=== PATIENT | male | born 1995 | race Caucasian/White ===

== ENCOUNTER 2016-05-28 19:44 | Emergency (ER) | payer BC ==
[2016-05-28 21:28] VITALS: BP 108/78
[2016-05-28] MEDS ORDERED: Amoxicillin/Clavulanate TAB* 875 MG PO ONE (22:01)
--- NOTE | 2016-05-28 22:09 | UC ---
Throat Pain/Nasal Edgar HPI - HPI Summary HPI Summary: TWO MONTHS OF SINUS CONGESTION COUGH, SORE THROAT. NO FEVER. 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 Onset/Duration: Gradual Onset, Lasting Weeks, Still Present Severity: Moderate Cough: Nonproductive Associated Signs & Symptoms: Positive: Sinus Discomfort, Nasal Discharge - Epiglottits Risk Factors Epiglottis Risk Factors: Negative - Allergies/Home Medications Allergies/Adverse Reactions: Allergies Allergy/AdvReac Type Severity Reaction Status Date / Time No Known Allergies Allergy Verified 05/28/16 21:27 Home Medications: Home Medications Escitalopram Oxalate [Lexapro] 10 mg PO DAILY 05/28/16 [History Confirmed ] PMH/Surg Hx/FS Hx/Imm Hx Previously Healthy: Yes - Surgical History Surgical History: None - Family History Known Family History: Negative: Cardiac Disease, Respiratory Disease - Social History Occupation: Employed Full-time Lives: With Family Alcohol Use: Weekly Substance Use Type: Marijuana Smoking Status (MU): Never Smoked Tobacco - Immunization History Most Recent Influenza Vaccination: November 2014 Vaccination Up to Date: Yes Review of Systems Constitutional: Fatigue Skin: Negative Eyes: Negative ENT: Ear Ache, Nasal Discharge Respiratory: Cough Cardiovascular: Negative Gastrointestinal: Negative Genitourinary: Negative Motor: Negative Neurovascular: Negative Musculoskeletal: Negative Neurological: Negative Psychological: Negative All Other Systems Reviewed And Are Negative: Yes Physical Exam Triage Information Reviewed: Yes Appearance: Well-Appearing, No Pain Distress, Well-Nourished Vital Signs: Initial Vital Signs Temp 98.9 F 05/28/16 21:22 Pulse 74 05/28/16 21:22 Resp 16 05/28/16 21:22 BP 108/78 05/28/16 21:22 Pulse Ox 100 05/28/16 21:22 Eye Exam: Normal ENT: Positive: Hearing grossly normal, Pharynx normal, TM bulging, TM dull Dental Exam: Normal Neck exam: Normal Neck: Positive: Supple Respiratory Exam: Normal Respiratory: Positive: Chest non-tender, Lungs clear, Normal breath sounds, No respiratory distress Cardiovascular Exam: Normal Cardiovascular: Positive: RRR, No Murmur Abdominal Exam: Normal Musculoskeletal Exam: Normal Neurological Exam: Normal Psychological Exam: Normal Psychological: Positive: Normal Response To Family Skin Exam: Normal Throat Pain/Nasal Course/Dx - Differential Dx/Diagnosis Differential Diagnosis/HQI/PQRI: Pharyngitis, Sinusitis, URI Provider Diagnoses: SINUSITIS Discharge - Discharge Plan Condition: Stable Disposition: HOME Prescriptions: Amoxicillin/Clavulanate TAB* [Augmentin TAB 875*] 875 mg PO BID #20 tab Patient Education Materials: Sinusitis (ED) Referrals: Adolfo Carvajal MD [Primary Care Provider] -
== END 2016-05-28 22:11 | disposition home or self-care (01) ==
LOC: UCCORT 19:44
DX: J32.9 Chronic sinusitis, unspecified (principal)
CPT/HCPCS: 99212; A9270-GY; G0463

== ENCOUNTER 2018-09-25 11:36 | Emergency (ER) | payer BC ==
--- NOTE | 2018-09-25 11:51 | UC ---
Skin Complaint HPI - HPI Summary HPI Summary: 23 yo male presents with testicular lump. He tells me that every few months he will do a self exam of his testicles while in the shower. Last night he did this and noticed a bump at the superior portion of his left testicle. No pain. He has been feeling well otherwise, other than some cold symptoms for the last few days. No fever, weight loss, decreased appetite, abdominal pain, dysuria. He was last sexually active about 2 weeks ago with his long time girlfriend. States no concern for STDs today. - History of Current Complaint Time Seen by Provider: 09/25/18 11:50 Stated Complaint: SOFT TISSUE Hx Obtained From: Patient Onset/Duration: Sudden Onset Current Severity: None - Allergy/Home Medications Allergies/Adverse Reactions: Allergies Allergy/AdvReac Type Severity Reaction Status Date / Time No Known Allergies Allergy Verified 09/25/18 11:56 Home Medications: Home Medications NK [No Home Medications Reported] 09/25/18 [History Confirmed 09/25/18] PMH/Surg Hx/FS Hx/Imm Hx - Additional Past Medical History Additional PMH: None Psychological History: Anxiety - Surgical History Surgical History: None - Family History Known Family History: Negative: Cardiac Disease, Respiratory Disease - Social History Lives: With Family Alcohol Use: Weekly Substance Use Type: Marijuana Smoking Status (MU): Never Smoked Tobacco - Immunization History Most Recent Influenza Vaccination: November 2014 Vaccination Up to Date: Yes Review of Systems All Other Systems Reviewed And Are Negative: Yes Constitutional: Positive: Negative Respiratory: Positive: Negative Cardiovascular: Positive: Negative Genitourinary: Positive: Other - Testicular lump Neurovascular: Positive: Negative Neurological: Positive: Negative Psychological: Positive: Negative Physical Exam - Summary Physical Exam Summary: GENERAL: NAD. WDWN. No pain distress. SKIN: No rashes, sores, lesions, or open wounds. NECK: Supple. Nontender. No lymphadenopathy. CHEST: CTAB. No r/r/w. No accessory muscle use. Breathing comfortably and in no distress. CV: RRR. Without m/r/g. Pulses intact. Cap refill <2seconds ABDOMEN: Soft. NTTP. No distention or guarding. Bowel sounds present NEURO: Alert. PSYCH: Age appropriate behavior. Triage Information Reviewed: Yes Vital Signs: Vital Signs: Temp Pulse Resp BP Pulse Ox 98.3 F 77 18 118/75 100 09/25/18 11:53 09/25/18 11:53 09/25/18 11:53 09/25/18 11:53 09/25/18 11:53 Vital Signs Reviewed: Yes Male Genital Exam: Positive: Other - Approx 5mm nodule near spermatic cord attachment to testicle near site of epididymal head. NTTP. No change with sitting, standing, or valsalva. No change with lifting the teste.. Negative: Epididymal Tenderness, Erythema, Hernia Mass, Inguinal Tenderness, Scrotum Tenderness (R), Scrotum Tenderness (L), Testicular Tenderness (R), Testicular Tenderness (L), Urethral Discharge Course/Dx - Course Course Of Treatment: UA negative. Testicular mass. Unfortunately, there is no ultrasound available at the today to have this further evaluated. I will draw for CBC, CMP, and HIV. Although I have a low suspicion for an emergent condition such as torsion - I suggested he go to the ER today to have an ultrasound performed. He did not want to do this, thus I let him know that he can return to the tomorrow and we can perform an ultrasound to further evaluate at that time as he has no PCP. Advised that if he develops pain or trouble urinating to go to the ED immediately. - Diagnoses Provider Diagnosis: Testicular mass Discharge - Sign-Out/Discharge Documenting (check all that apply): Patient Departure All imaging exams completed and their final reports reviewed: No Studies - Discharge Plan Condition: Stable Disposition: HOME Referrals: Adolfo Carvajal MD [Primary Care Provider] - Additional Instructions: If you develop a fever, shortness of breath, chest pain, new or worsening symptoms - please call your PCP or go to the ED immediately. I recommend that you get an ultrasound of the testicle for further evaluation - Billing Disposition and Condition Condition: STABLE Disposition: Home - Attestation Statements Provider Attestation: I was available for consult. This patient was seen by the [facility]. The patient was not presented to , seen by or examined by -Ben Dexter MD
[2018-09-25 11:56] VITALS: BP 118/75
[2018-09-25 14:11] LABS: ABS Eosinophils 0.1 10^3/ul (0-0.6); ABS Lymphocytes 1.6 10^3/ul (1.0-4.8); ABS Monocytes 0.6 10^3/ul (0-0.8); ABS Neutrophils 4.8 10^3/ul (1.5-7.7); Eosinophil % 0.9 %; Hematocrit 46 % (42-52); Hemoglobin 15.9 g/dL (14.0-18.0); Mean Corpuscular HGB Conc 34 g/dL (31-36); Mean Corpuscular Hemoglobin 29 pg (27-31); Mean Corpuscular Volume 84 fL (80-94); Mean Platelet Volume 8.8 fL (7.4-10.4); Nucleated Red Blood Cells % 0.1; Platelet Count 168 10^3/uL (150-450); Red Blood Count 5.48 10^6 /uL (4.18-5.48); Red Cell Distribution Width 14 % (10-15); White Blood Count 7.1 10^3/uL (3.5-10.8)
[2018-09-25 14:27] LABS: Albumin 4.8 g/dL (3.2-5.2); Albumin/Globulin Ratio 2.1 (1-3); BUN/Creatinine Ratio 11.3 (8-20); Calcium 10.1 mg/dL (8.6-10.3); EGFR African American 117.1 (>60); EGFR Non-African American 96.8 (>60); Globulin 2.3 g/dL (2-4); Potassium 3.7 mmol/L (3.5-5.0); Total Bilirubin 0.8 mg/dL (0.2-1.0); Total Protein 7.1 g/dL (6.4-8.9)
[2018-09-25 15:03] LABS: HIV 4th Generation Negative (Negative)
== END 2018-09-25 13:05 | disposition home or self-care (01) ==
LOC: UCEAST 11:36
DX: N50.89 Other specified disorders of the male genital organs (principal)
CPT/HCPCS: 36415; 80053; 81002; 85025; 87389; 99211; G0463